=== PATIENT | female | born 1955 | race Caucasian/White ===

== ENCOUNTER 2016-04-12 08:46 | Emergency (ER) | payer OTHER | END 2016-04-12 09:30 | disposition home or self-care (01) | LOC: ER 08:46 | DX: J20.8 Acute bronchitis due to other specified organisms (principal); H66.92 Otitis media, unspecified, left ear; K21.9 Gastro-esophageal reflux disease without esophagitis; I10 Essential (primary) hypertension; F17.210 Nicotine dependence, cigarettes, uncomplicated; K58.9 Irritable bowel syndrome, unspecified; Z90.49 Acquired absence of other specified parts of digestive tract; Z79.899 Other long term (current) drug therapy; Z88.8 Allergy status to other drugs, medicaments and biological substances; Z88.2 Allergy status to sulfonamides | CPT/HCPCS: 96372; J1100 ==

== ENCOUNTER 2016-04-19 13:36 | Emergency (ER) | payer OTHER | END 2016-04-19 15:19 | disposition home or self-care (01) | LOC: ER 13:36 | DX: R07.81 Pleurodynia (principal); J44.9 Chronic obstructive pulmonary disease, unspecified; K21.9 Gastro-esophageal reflux disease without esophagitis; I10 Essential (primary) hypertension; Z90.49 Acquired absence of other specified parts of digestive tract; F17.210 Nicotine dependence, cigarettes, uncomplicated; Z79.899 Other long term (current) drug therapy; Z88.2 Allergy status to sulfonamides; Z88.1 Allergy status to other antibiotic agents | CPT/HCPCS: 36415 ==